=== PATIENT | male | born 1980 | race Caucasian/White ===

== ENCOUNTER 2018-10-06 08:03 | Emergency (ER) | payer OTHER ==
[2018-10-06 08:26] VITALS: BP 143/87
--- NOTE | 2018-10-06 08:32 | ED Physician Documentation ---
General Adult - HPI Stated Complaint: lip laceration Chief Complaint: Laceration/Recheck/Suture Additional Information: Patient presents to ED with laceration of right corner of mouth after standing up and catching the corner of a metal locker with his lip. Patient reports it was dark and he could not see. Patient last tetanus was 2014 Onset: hours (2) Timing: still present Severity: moderate - ROS CONST: no problems EYES/ENT: none CVS/RESP: none GI/: none MS/SKIN/LYMPH: none NEURO/PSYCH: denies: headache - PAST HX Past History: none Other History: none Surgeries/Procedures: none Allergies/Adverse Reactions: Allergies Allergy/AdvReac Type Severity Reaction Status Date / Time amoxicillin AdvReac Rash Verified 10/06/18 08:15 Penicillins AdvReac Rash Verified 10/06/18 08:15 Home Medications: Ambulatory Orders Medication Instructions Recorded Duloxetine HCl [Cymbalta] 20 mg PO BID 10/06/18 - SOCIAL HX Smoking History: non-smoker Alcohol Use: none Drug Use: none - FAMILY HX Family History: No - VITAL SIGNS Vital Signs: Vital Signs Temp Pulse Resp BP Pulse Ox 98.9 F 78 17 143/87 98 10/06/18 08:03 10/06/18 08:03 10/06/18 08:03 10/06/18 08:03 10/06/18 08:03 - REVIEWED ASSESSMENTS Nursing Assessment Reviewed: Yes Vitals Reviewed: Yes Procedures Wound Location: mouth Wound Length: 2 cm Wound's Depth, Shape: superficial, irregular, flap Wound Explored: clean Betadine Prep?: No Anesthesia: 1% Lidocaine Volume of Anesthetic: 5 ml Wound Debrided: minimal Wound Repaired With: sutures Suture Size/Type: 5:0 Number of Sutures: 4 Layer Closure?: No Sterile Dressing Applied?: No Splint Applied?: No Sling Applied?: No General Adult Physical Exam - PHYSICAL EXAM GENERAL APPEARANCE: no distress EENT: GEM, other (2 cm laceration to right corner of mouth invaded mucous membrane, sparing lip border) NECK: normal inspection RESPIRATORY: no resp distress CVS: reg rate & rhythm, heart sounds normal ABDOMEN: soft BACK: normal inspection SKIN: warm/dry, normal color EXTREMITIES: non-tender NEURO: oriented X3, motor nml Discharge Clincal Impression: Lip laceration Qualifiers: Encounter type: initial encounter Qualified Code(s): S01.511A - Laceration without foreign body of lip, initial encounter Referrals: Kranthi Morris III, MD [Primary Care Provider] - 2 Days Additional Instructions: 1. Keep wound clean and dry 2. Clear liquid diet for next 24 hours. Ensure with meals for nutrition supplementation 3. Follow up with PCP within 7-10 for suture removal 4. Return to ER for new or worsening symptoms Condition: Stable Disposition: 01 HOME, SELF-CARE Decision to Admit: NO Date of Decison to Admit: 10/06/18 Decision Time: 08:37
== END 2018-10-06 08:45 | disposition home or self-care (01) ==
LOC: ED 08:03
DX: S01.511A Laceration without foreign body of lip, initial encounter (principal); W22.8XXA Striking against or struck by other objects, initial encounter; Y93.89 Activity, other specified; Y92.9 Unspecified place or not applicable
CPT/HCPCS: 12011; 99282